=== PATIENT | female | born 1995 | race African-American/Black ===

== ENCOUNTER 2018-02-04 12:20 | Emergency (ER) | payer MEDICAID ==
[~2018-02-04] VITALS: Ht 167.6 cm; Wt 55.3 kg
[~2018-02-04 12:20] MED LIST: MACROBID100 MG ORAL; NORCO 5-325 TA1 EACH ORAL
[2018-02-04] MEDS ORDERED: LR 1000ml 1,000 ML IV STA (12:51)
--- NOTE | 2018-02-04 13:01 | Emergency Room Report ---
History of Present Illness General Chief Complaint: Vomiting Source: Patient Present Illness HPI 22-year-old female walks in with 2 days of nausea and vomiting Patient states she is 6 weeks , based on last menstrual period Has not had sonograms Not taking vitamins No previous Denies abdominal pain, vaginal bleeding, back pain, chest pain or shortness of breath Allergies: Coded Allergies: No Known Allergies (Verified Allergy, Unknown, 07/29/09) Patient History Past Medical History: none Past Surgical History: none Pertinent Family History: none Social History: Denies: smoking, alcohol use, drug use Last Menstrual Period: Nov Now: Yes Immunizations: UTD Reviewed Nursing Documentation: PMH: Agreed; PSxH: Agreed Nursing Documentation-PMH Past Medical History: No Stated History Review of Systems All Other Systems: negative except mentioned in HPI Physical Exam Vital Signs Date Time Temp Pulse Resp B/P (MAP) Pulse Ox O2 Delivery O2 Flow Rate FiO2 02/04/18 12:35 97.0 65 16 120/63 97 Room Air 97.0 Sp02 EP Interpretation: reviewed, normal General Appearance: normal inspection, well appearing, no apparent distress, alert, GCS 15, non-toxic Head: normocephalic, atraumatic Eyes: bilateral eye PERRL, bilateral eye EOMI ENT: normal ENT inspection, hearing grossly normal, normal pharynx, no angioedema, normal voice, TMs + canals normal, uvula midline, moist mucus membranes Neck: normal inspection, full range of motion, supple, thyroid normal, no meningismus, no bony tend Respiratory: normal inspection, lungs clear, normal breath sounds, no rhonchi, no respiratory distress, no retraction, no accessory muscle use, no wheezing, speaking full sentences Cardiovascular #1: regular rate, rhythm, no edema, no JVD, normal capillary refill Gastrointestinal: normal inspection, normal bowel sounds, non tender, soft, no mass, no peritonitis, non-distended, no guarding, no hernia, no pulsatile mass Genitourinary: no CVA tenderness Musculoskeletal: normal inspection, back normal, normal range of motion, no calf tenderness, pelvis stable, Damian's Sign negative Neurologic: normal inspection, alert, oriented x3, responsive, real estate analyst III-XII nml as tested, motor strength/tone normal, cerebellar normal, normal gait, speech normal Psychiatric: normal inspection, judgement/insight normal, mood/affect normal, no suicidal/homicidal ideation, no delusions Skin: normal inspection, normal color, no rash Lymphatic: normal inspection, no adenopathy Medical Decision Making Diagnostic Impression: Primary Impression: Vomiting Qualified Codes: R11.2 - Nausea with vomiting, unspecified Additional Impression: Qualified Codes: Z3A.01 - Less than 8 weeks gestation of ER Course VSS, afebrile Non-focal abdomen Toleratign PO after IV zofran Leuks 13k likely normal in Non-focal abdomen and well appearance without ever having abd pain so unlikely acute appendicitis or other bacterial/surgical infection/process at this time UA pending at time of signout to Dr Villareal at 2pm If normal, advised DC with Vitamin B6/doxylamine and OB followup Last Vital Signs Date Time Temp Pulse Resp B/P (MAP) Pulse Ox O2 Delivery O2 Flow Rate FiO2 02/04/18 12:35 97.0 65 16 120/63 97 Room Air 97.0 Status: improved Disposition: HOME, SELF-CARE Scripts Pyridoxine Hcl (VITAMIN B-6) 25 Mg Tablet 25 MG PO TID for nausea, vomiting for 7 Days, #30 TAB Prov: DANA ALONZO M.D. 02/04/18 Doxylamine Succinate (SLEEP AID) 25 Mg Tablet 25 MG PO QHS for 7 Days, #14 TAB Prov: DANA ALONZO M.D. 02/04/18 DANA ALONZO M.D. Feb 04, 2018 13:01
[2018-02-04 13:03] VITALS: BP 120/63
[2018-02-04 13:23] LABS: BASOPHILS % (AUTO) 0.6 % (0.0-2.0); EOSINOPHILS % (AUTO) 0.8 % (0.0-3.0); HEMATOCRIT 41.6 % (37.0-47.0); HEMOGLOBIN 13.9 G/DL (12.0-16.0); LYMPHOCYTES % (AUTO) 14.6 % (20.0-45.0); MEAN CORPUSCULAR VOLUME 94 FL (80-99); MONOCYTES % (AUTO) 3.9 % (1.0-10.0); NEUTROPHILS % (AUTO) 80.1 % (45.0-75.0); PLATELET COUNT 263 K/UL (150-450); RED BLOOD COUNT 4.42 M/UL (4.20-5.40); RED CELL DISTRIBUTION WIDTH 11.1 % (11.6-14.8); WHITE BLOOD COUNT 13.5 K/UL (4.8-10.8)
[2018-02-04] MEDS ORDERED: VITAMIN B-625 MG PO (13:36)
[2018-02-04] MEDS ORDERED: SLEEP AID25 M1 PO (13:36)
[2018-02-04 13:53] LABS: ANION GAP 10 mmol/L (5-15); BLOOD UREA NITROGEN 9 mg/dL (7-18); CALCIUM 9.2 MG/DL (8.5-10.1); CARBON DIOXIDE 25 MMOL/L (21-32); CHLORIDE 102 MMOL/L (98-107); CREATININE 0.7 MG/DL (0.55-1.30); POTASSIUM 3.7 MMOL/L (3.5-5.1); SODIUM 137 MMOL/L (136-145)
[2018-02-04 13:58] LABS: ALANINE AMINOTRANSFERASE 20 U/L (12-78); ALBUMIN 4.4 G/DL (3.4-5.0); ALBUMIN/GLOBULIN RATIO 1.2 (1.0-2.7); ALKALINE PHOSPHATASE 53 U/L (46-116); ASPARTATE AMINO TRANSFERASE 18 U/L (15-37); BILIRUBIN,TOTAL 0.8 MG/DL (0.2-1.0)
[2018-02-04 14:02] LABS: APPEARANCE,URINE CLEAR; BILIRUBIN, URINE NEGATIVE (NEGATIVE); GLUCOSE, URINE (UA) NEGATIVE (NEGATIVE); KETONES,URINE 4+ (NEGATIVE); LEUKOCYTE ESTERASE ,URINE 1+ (NEGATIVE); NITRITE,URINE NEGATIVE (NEGATIVE); PH,URINE 8 (4.5-8.0); PROTEIN,URINE 1+ (NEGATIVE); UROBILINOGEN,URINE 1 MG/DL (0.0-1.0)
[2018-02-04 14:07] VITALS: BP 137/61
[2018-02-04 14:09] LABS: COLOR,URINE YELLOW
[2018-02-04 14:10] VITALS: BP 137/61
== END 2018-02-04 15:11 | disposition home or self-care (01) ==
LOC: EMR 13:00
DX: O21.9 Vomiting of pregnancy, unspecified (principal); Z3A.01 Less than 8 weeks gestation of pregnancy
CPT/HCPCS: 36415; 80053; 81003; 81025; 83690; 85025; 96374; 96375; 99284; J2405

== ENCOUNTER 2018-12-28 01:31 | Emergency (ER) | payer MEDICAID, OTHER ==
[~2018-12-28] VITALS: Ht 170.2 cm; Wt 67.1 kg
[~2018-12-28 01:31] MED LIST changes: +SLEEP AID25 M1 PO; +VITAMIN B-625 MG PO
[2018-12-28] MEDS ORDERED: NKM (01:47)
[2018-12-28 01:52] VITALS: BP 120/82
--- NOTE | 2018-12-28 01:58 | Emergency Room Report ---
History of Present Illness General Chief Complaint: Headache Source: Patient Present Illness HPI Is a 23-year-old female with no past medical history. She presents with chief complaint of headache. Onset for last 2 days. Throbbing in nature. Mostly frontal and neck pain. Worse with bending over. So nauseous but no vomiting. She does have lack of sleep because she is breast-feeding and has a 3-month-old kid. Denies any trauma. No fever chills. no vomiting. No diarrhea. No URI symptom. Allergies: Coded Allergies: No Known Allergies (Verified Allergy, Unknown, 07/29/09) Patient History Past Medical History: see triage record, old chart reviewed Past Surgical History: none Pertinent Family History: none Social History: Denies: smoking Last Menstrual Period: 12/07/2017 Now: No - Patient was a IUG : 1 Para: 1 Immunizations: other Reviewed Nursing Documentation: PMH: Agreed; PSxH: Agreed Nursing Documentation-PMH Past Medical History: No Stated History Review of Systems Eye: Denies: eye pain, blurred vision ENT: Denies: ear pain, nose congestion, throat swelling Respiratory: Denies: cough, shortness of breath Cardiovascular: Denies: chest pain, palpitations Gastrointestinal: Denies: abdominal pain, diarrhea, nausea, vomiting Musculoskeletal: Denies: back pain, joint pain Skin: Denies: rash Neurological: Reports: headache; Denies: numbness Endocrine: Denies: increased thirst, increased urine Hematologic/Lymphatic: Denies: easy bruising All Other Systems: negative except mentioned in HPI Physical Exam Vital Signs Date Time Temp Pulse Resp B/P (MAP) Pulse Ox O2 Delivery O2 Flow Rate FiO2 12/28/18 01:44 98.4 90 18 115/77 95 Room Air vitals normal Sp02 EP Interpretation: reviewed, normal General Appearance: well appearing, no apparent distress, alert Head: normocephalic, atraumatic Eyes: bilateral eye PERRL, bilateral eye EOMI ENT: hearing grossly normal, normal pharynx Neck: full range of motion, supple, no meningismus Respiratory: chest non-tender, lungs clear, normal breath sounds Cardiovascular #1: regular rate, rhythm, no murmur Gastrointestinal: normal bowel sounds, non tender, no mass, no organomegaly, no bruit, non-distended Musculoskeletal: back normal, gait/station normal, normal range of motion Psychiatric: mood/affect normal Skin: warm/dry Medical Decision Making Diagnostic Impression: Primary Impression: Headache Qualified Codes: G44.209 - Tension-type headache, unspecified, not intractable Additional Impression: UTI (urinary tract infection) Qualified Codes: N30.00 - Acute cystitis without hematuria ER Course Patient presents with headache. Most likely tension in nature. No evidence of meningitis, bleed or neoplastic process. Patient felt better now. We'll discharge home. Last Vital Signs Date Time Temp Pulse Resp B/P (MAP) Pulse Ox O2 Delivery O2 Flow Rate FiO2 12/28/18 01:44 98.4 90 18 115/77 95 Room Air Status: improved Disposition: HOME, SELF-CARE Condition: Stable Scripts Nitrofurantoin Monohyd/M-Cryst (Nitrofurantoin [place]-Mcr 100 mg) 100 Mg Capsule 100 MG ORAL Q12H, #14 CAP Prov: Kai Gray MD 12/28/18 Tramadol Hcl (ULTRAM*) 50 Mg Tablet 50 MG ORAL Q6H, #15 TAB 0 Refills Prov: Kai Gray MD 12/28/18 Patient Instructions: General Headache Without Cause Additional Instructions: Increase fluids. Follow-up with your doctor in 7 days. Return if worse. Kai Gray MD Dec 28, 2018 01:58
[2018-12-28] MEDS ORDERED: Ketorolac 30mg Inj IV ONE (02:00)
[2018-12-28] MEDS ORDERED: DiphenhydrAMINE 50mg/ml Inj IVP ONE (02:00)
[2018-12-28] MEDS ORDERED: Metoclopramide 10mg/2ml Inj IVP ONE (02:00)
--- NOTE | 2018-12-28 02:20 | NUR ---
ER Nurse Note: Pt came from home c/o headache and neck pain since 12/27. Pt states pain is 9/10, throbbing pain, non radiating. Pt a&ox4, VSS, no signs of distress. Pt able to move neck with no difficulty. Pt stated she is . [facility] pt side[facility]
[2018-12-28 02:54] LABS: APPEARANCE,URINE SLIGHTLY CLOUDY; BILIRUBIN, URINE NEGATIVE (NEGATIVE); GLUCOSE, URINE (UA) NEGATIVE (NEGATIVE); KETONES,URINE NEGATIVE (NEGATIVE); LEUKOCYTE ESTERASE ,URINE 1+ (NEGATIVE); NITRITE,URINE NEGATIVE (NEGATIVE); PH,URINE 5 (4.5-8.0); PROTEIN,URINE NEGATIVE (NEGATIVE); UROBILINOGEN,URINE 1 MG/DL (0.0-1.0)
[2018-12-28] MEDS ORDERED: ULTRAM50 MG ORAL (03:12)
[2018-12-28 03:15] LABS: COLOR,URINE YELLOW
[2018-12-28] MEDS ORDERED: MACROBID100 MG ORAL (03:37)
[2018-12-28 04:07] VITALS: BP 120/82
--- NOTE | 2018-12-28 04:09 | NUR ---
ER Nurse Note: Pt seen, treated, medically cleared for discharge by ERMD. Discharge instructions and prescriptions given with repeat verbalization by pt. Instructed pt to follow up with primary care physican within one week. Pt a&ox4, VSS, no signs of distress. ID band removed, IV removed, site clean and bandaged. Left with all belongings, left via own transportation.
== END 2018-12-28 04:09 | disposition home or self-care (01) ==
LOC: EMR 02:00
DX: R51 Headache (principal); N39.0 Urinary tract infection, site not specified
CPT/HCPCS: 81003; 81025; 87086; 96361; 96374; 96375; 99284; J1200; J1885; J2765

== ENCOUNTER 2020-08-26 08:26 | Emergency (ER) | payer OTHER ==
[~2020-08-26] VITALS: Ht 170.2 cm; Wt 56.7 kg
[~2020-08-26 08:26] MED LIST changes: +NKM; +ULTRAM50 MG ORAL
[2020-08-26 08:37] VITALS: BP 116/69
[2020-08-26 08:52] LABS: BILIRUBIN, URINE NEGATIVE (NEGATIVE); COLOR,URINE YELLOW; GLUCOSE, URINE (UA) NEGATIVE (NEGATIVE); KETONES,URINE NEGATIVE (NEGATIVE); LEUKOCYTE ESTERASE ,URINE NEGATIVE (NEGATIVE); NITRITE,URINE NEGATIVE (NEGATIVE); PH,URINE 5 (4.5-8.0); PROTEIN,URINE NEGATIVE (NEGATIVE); UROBILINOGEN,URINE NORMAL MG/DL (0.0-1.0)
[2020-08-26 08:53] LABS: APPEARANCE,URINE CLEAR
[2020-08-26 10:01] VITALS: BP 120/58
--- NOTE | 2020-08-26 14:13 | Emergency Room Report ---
History of Present Illness General Chief Complaint: Female Urogenital Problems Source: Patient Present Illness HPI 25-year-old female presents for evaluation. States she is having vaginal odor for the last 3 weeks. Denies any discharge. Denies any pain. Denies any dysuria or hematuria. States she has an IUD. Denies any unprotected sex. No other aggravating relieving factors. Denies any other associated symptoms Allergies: Coded Allergies: No Known Allergies (Verified Allergy, Unknown, 07/29/09) COVID-19 Screening Contact w/high risk pt: No Experienced COVID-19 symptoms?: No COVID-19 Testing performed CAR [employer]PER: Yes - 08/10/20 COVID-19 Screening: Negative COVID-19 COVID-19 Testing Source: drive thru Patient History Past Medical History: none Past Surgical History: none Pertinent Family History: none Social History: Denies: smoking, alcohol use, drug use Last Menstrual Period: on control Now: No Immunizations: UTD Reviewed Nursing Documentation: PMH: Agreed; PSxH: Agreed Nursing Documentation-PMH Past Medical History: No Stated History Review of Systems All Other Systems: negative except mentioned in HPI Physical Exam Vital Signs Date Time Temp Pulse Resp B/P (MAP) Pulse Ox O2 Delivery O2 Flow Rate FiO2 08/26/20 08:30 98.2 62 19 116/69 (85) 98 Room Air Sp02 EP Interpretation: reviewed, normal General Appearance: no apparent distress, alert, GCS 15, non-toxic Head: normocephalic, atraumatic Eyes: bilateral eye normal inspection, bilateral eye PERRL ENT: hearing grossly normal, normal pharynx, no angioedema, normal voice Neck: full range of motion, supple/symm/no masses Respiratory: chest non-tender, lungs clear, normal breath sounds, speaking full sentences Cardiovascular #1: regular rate, rhythm, no edema Cardiovascular #2: 2+ carotid (R), 2+ carotid (L), 2+ radial (R), 2+ radial (L), 2+ dorsalis pedis (R), 2+ dorsalis pedis (L) Gastrointestinal: normal bowel sounds, non tender, soft, non-distended, no guarding, no rebound Rectal: deferred Genitourinary: no CVA tenderness, other - department head present. No CMT. No adnexal tenderness. Minimal white discharge noted Musculoskeletal: back normal, normal range of motion, gait/station normal, non- tender Neurologic: alert, motor strength/tone normal, oriented x3, sensory intact, responsive, speech normal Psychiatric: judgement/insight normal, memory normal, mood/affect normal, no suicidal/homicidal ideation Reflexes: 3+ bicep (R), 3+ bicep (L), 3+ tricep (R), 3+ tricep (L), 3+ knee (R), 3+ knee (L) Skin: no rash Lymphatic: no adenopathy Medical Decision Making Diagnostic Impression: Primary Impression: Abnormal urogenital findings ER Course Hospital Course 25-year-old female presents with vaginal odor Differential diagnoses include: Cervicitis, UTI, yeast infection, STD Clinical course Patient placed on stretcher in ED. After initial history, physical exam reveals a female in no acute distress. Pelvic exam-department head present, os is closed, no CMT, no adnexal tenderness. There is a white discharge noted. Wet mount sent Urine -UA unremarkable wet Mount shows no clue cells no trichomonas no yeast I discussed findings with patient. Patient is not concerned for STD. States she will follow-up with her [employer] regarding possible involvement of her IUD. Safe for discharge close outpatient follow-up. Also provide referrals Diagnosis -abnormal urogenital findings Stable and discharged to home. Followup with PMD/CIG[employer] P[employer]ER. Return to ED if symptoms recur or worsen Laboratory Tests Test 08/26/20 08:40 Urine Color Yellow Urine Appearance Clear Urine pH 5 (4.5-8.0) Urine Specific [place] 1.020 (1.005-1.035) Urine Protein Negative (NEGATIVE) Urine Glucose (UA) Negative (NEGATIVE) Urine Ketones Negative (NEGATIVE) Urine Blood Negative (NEGATIVE) Urine Nitrite Negative (NEGATIVE) Urine Bilirubin Negative (NEGATIVE) Urine Urobilinogen Normal MG/DL (0.0-1.0) Urine Leukocyte Esterase Negative (NEGATIVE) Urine HCG, Qualitative Negative (NEGATIVE) Last Vital Signs Date Time Temp Pulse Resp B/P (MAP) Pulse Ox O2 Delivery O2 Flow Rate FiO2 08/26/20 10:01 98.0 72 20 120/58 100 Room Air Status: improved Disposition: HOME, SELF-CARE Condition: Stable Referrals: Petar Condon [facility]. [facility] Patient Instructions: Vaginitis, [id number] Sj Montoya MD Aug 26, 2020 14:13
== END 2020-08-26 10:01 | disposition home or self-care (01) ==
LOC: EMR 08:55
DX: R87.9 Unspecified abnormal finding in specimens from female genital organs (principal); Z97.5 Presence of (intrauterine) contraceptive device
CPT/HCPCS: 81003; 81025; 87210; Z7502; 99282